=== PATIENT | male | born 1995 | race Caucasian/White ===

== ENCOUNTER 2021-02-26 02:29 | Emergency (ER) | payer OTHER, SELFPAY ==
[2021-02-26 02:55] VITALS: BP 144/87; PULSE 92; RESP 16; TEMP 36.4; O2SAT 95; BMI 24.3
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
--- NOTE | 2021-02-26 04:36 | PC.NURSE ---
Reviewed plan of care and discharge instructions. Pt verbalized understanding.
[2021-02-26 07:34] LABS: HIV AB/AG Nonreactive (Nonreactive); HIV Num 1 0.06 S/CO (0.00-0.99); ~HepC Num1 0.22 S/CO (0.00-0.79); ~Hepatitis C Antibody Nonreactive (Nonreactive)
== END 2021-02-26 04:37 | disposition home or self-care (01) ==
PROVIDERS: Emergency Provider Student in an Organized Health Care Education/Training Program; PCP Internal Medicine
DX: S61.412A Laceration without foreign body of left hand, initial encounter (principal); S61.411A Laceration without foreign body of right hand, initial encounter; Y35.401A Legal intervention involving unspecified sharp objects, law enforcement official injured, initial encounter; Y93.89 Activity, other specified; Y92.410 Unspecified street and highway as the place of occurrence of the external cause; Y99.9 Unspecified external cause status
CPT/HCPCS: 36415; 86803; 87389; 99283

== ENCOUNTER → 2021-03-04 08:35 | Outpatient (BNVA) | payer OTHER, SELFPAY | PROVIDERS: PCP Internal Medicine; Visit Provider Internal Medicine | DX: Z77.21 Contact with and (suspected) exposure to potentially hazardous body fluids (principal) | CPT/HCPCS: 99202 ==